=== PATIENT | female | born 1970 | race Caucasian/White ===

== ENCOUNTER 2022-05-03 11:17 | Outpatient (REF) | payer BC, SELFPAY ==
--- NOTE | 2022-05-03 10:15 | PAPFT_PTH ---
PATIENT: Kaylynn Henry LOC: [facility] U#:[id number] AGE/SX: 51/F ROOM: RE05/03/[address]: Christie Villa : 1970 BED: DIS: 05/03/2022 SPEC #: [id number] RECD: 05/03/22 12:42 STATUS: KEILA REAnum #: [id number] ELIZABETH: 05/03/22 10:[address]: Christie Villa DEPT: [facility] Cytology RECD BY: Melina Bhandari Tissues: 1 - CX/ENDOCX FOR PAP SMEARS Procedures: PAP THIN PREP/[facility] Screening HPV DNA PROBE Comments: [id number]
== END 2022-05-03 11:18 | disposition home or self-care (01) ==
LOC: LBN 11:17
PROVIDERS: Visit Provider Obstetrics & Gynecology Gynecology
DX: Z12.4 Encounter for screening for malignant neoplasm of cervix (principal); Z11.51 Encounter for screening for human papillomavirus (HPV)
CPT/HCPCS: 88142; 87624